=== PATIENT | female | born 1995 | race African-American/Black ===

== ENCOUNTER 2023-12-18 08:46 | Day surgery (SDC) | payer OTHER, MEDICAID ==
[2023-12-18] MEDS ORDERED: Acetaminophen 500 MG TAB ONE (09:00)
[2023-12-18] MEDS: Acetaminophen 500 MG TAB PO SCH (09:01)
[2023-12-18] MEDS: Iron Sucrose Complex 500 MG in Sodium Chloride 0.9% 250 ML 250 ML IVPB SCH (09:20)
[2023-12-18] MEDS ORDERED: diphenhydrAMINE 25 MG CAP ONE (11:08)
[2023-12-18] MEDS: diphenhydrAMINE 25 MG CAP PO SCH (11:15)
[2023-12-18 13:33] VITALS: BP 110/63; TEMP 98.4
== END 2023-12-18 13:28 | disposition home or self-care (01) ==
LOC: ONC/OP 08:46
PROVIDERS: ATTEND Family Medicine
DX: O99.019 Anemia complicating pregnancy, unspecified trimester (principal); Z3A.00 Weeks of gestation of pregnancy not specified
CPT/HCPCS: 96365; 99212; G0463; J1756; J7050